=== PATIENT | male | born 1990 | race Caucasian/White ===

== ENCOUNTER 2016-08-17 17:44 | Emergency (ER) | payer OTHER ==
[~2016-08-17] VITALS: Ht 188 cm; Wt 113.6 kg
[2016-08-17 19:42] LABS: EOSINOPHIL (%) 0.7 % (0-5); EOSINOPHIL COUNT 0.1 K/uL (0-0.3); HEMATOCRIT 42.7 % (38.0-50.0); IMMATURE GRANULOCYTE (%) 0.4 % (0.0-0.7); LYMPHOCYTE COUNT 2.7 K/uL (1.0-2.8); MCH 31.4 PG (29.0-34.0); MCHC 34.9 G/DL (30.0-36.0); MCV 89.9 FL (86-99); MEAN PLAT.VOLUME 10.7 uM^3 (9.0-12.4); MONOCYTE (%) 7.2 % (3-12); MONOCYTE COUNT 0.5 K/uL (0-0.8); NEUTROPHIL (%) 52.1 % (45-76); NEUTROPHIL COUNT 3.5 K/uL (1.8-6.4); PLATELET COUNT 244 K/uL (156-360); RBC DIS.WIDTH-CV 13.1 % (11.8-14.6); RBC DIS.WIDTH-SD 42.8 % (39-53); RED BLOOD COUNT 4.75 M/uL (4.00-5.50); WHITE BLOOD COUNT 6.8 K/uL (4.1-10.2)
[2016-08-17] MEDS ORDERED: ZOFRAN ODT4 MG PO (19:45)
[2016-08-17] MEDS ORDERED: TRUVADA1 TABLET PO (19:45)
[2016-08-17] MEDS ORDERED: ISENTRESS400 MG PO (19:45)
[2016-08-17 20:23] VITALS: BP 151/95
[2016-08-17 20:38] LABS: ALKALINE PHOSPHATASE 101 IU/L (3-129); ANION GAP 10 MEQ/L (2-14); CHLORIDE 105 MEQ/L (99-109); DIRECT BILIRUBIN 0.1 mg/dL (0.0-0.3); GFR ESTIMATE (CALCULATED) > 59 mL/min/; GLUCOSE 101 mg/dL (70-99); POTASSIUM 4.1 MEQ/L (3.7-5.4); SAMPLE HEMOLYSIS CHECK 1; SAMPLE ICTERIC CHECK 0; SAMPLE LIPEMIA CHECK 0; SODIUM 140 MEQ/L (136-147); TOTAL BILIRUBIN 0.3 MG/DL (0.0-1.0); UREA NITROGEN (BUN) 13 mg/dL (9-23)
[2016-08-18 10:39] LABS: AHBS INDEX > 1000.00; HEPATITIS B SURFACE ANTIBODY REACTIVE; HIV INDEX 0.08; HIV-1/2 AB/AG COMBO Nonreactive
== END 2016-08-17 20:26 | disposition home or self-care (01) ==
LOC: EME 17:44
PROVIDERS: Nurse Practitioner Family
DX: Z77.21 Contact with and (suspected) exposure to potentially hazardous body fluids (principal); S61.214A Laceration without foreign body of right ring finger without damage to nail, initial encounter; Y35.391A Legal intervention involving other blunt objects, law enforcement official injured, initial encounter; Y99.0 Civilian activity done for income or pay
CPT/HCPCS: 80048; 80076; 85025; 86703; 86706; 86803; 99281; 99284